=== PATIENT | male | born 1955 | race Caucasian/White ===

== ENCOUNTER 2017-09-18 15:18 | Inpatient (IN) ==
[2017-09-19] MEDS: Baclofen 10 MG TABLET PO SCH (21:59)
[2017-09-19] MEDS: Gabapentin 300 MG CAPSULE PO SCH (21:59)
[2017-09-19] MEDS: *HR* OxyCODONE/APAP 7.5/325 TABLET PO PRN (21:59)
[2017-09-20] MEDS: *HR* OxyCODONE/APAP 7.5/325 TABLET PO PRN ×3 (05:03→22:05)
[2017-09-20 05:47] LABS: Basophils # 0.2 K/mcL (0.0-0.2); Basophils % 1.8 %; Eosinophils # 0.3 K/mcL (0.0-0.6); Eosinophils % 3.4 %; Hematocrit 41.4 % (37.5-50.1); Hemoglobin 13.6 g/dL (12.9-16.9); Immature Granulocytes % 0.6 % (0-4); Lymphocytes # 3.2 K/mcL (0.6-4.6); Lymphocytes % 38.3 %; Mean Corpuscular HGB Conc 32.9 g/dL (31.6-35.5); Mean Corpuscular Hemoglobin 29.5 pg (28.0-33.3); Mean Corpuscular Volume 89.8 fL (83.0-100.0); Mean Platelet Volume 9.3 fL (9.4-12.4); Monocytes # 0.7 K/mcL (0.0-1.3); Monocytes % 8.4 %; Platelet Count 486 K/mcL (140-400); Red Blood Count 4.61 M/mcL (4.19-5.50); Red Cell Distribution Width 13.3 % (11.5-14.5); Segmented Neutrophils % 47.5 %
[2017-09-20 05:53] LABS: INR 1.1; Prothrombin Time 11.5 Seconds (9.4-12.1)
[2017-09-20 05:54] LABS: Activated Partial Thrombo Time 34.8 Seconds (26.0-36.0)
[2017-09-20 06:05] LABS: BUN/Creatinine Ratio 18 (6-26); Blood Urea Nitrogen 15 mg/dL (8-26); Carbon Dioxide 29 mEq/L (19-29); Chloride 108 mEq/L (98-109); Glucose 220 mg/dL (70-99); Osmolality,Calculated 300 (280-300); Sodium 141 mEq/L (136-145); eGFR For African Americans > 60 (> 60); eGFR For Non-African Americans > 60 (> 60)
[2017-09-20] MEDS: *HR* Metformin 500 MG TABLET PO SCH ×2 (08:30→16:40)
[2017-09-20] MEDS: Gabapentin 300 MG CAPSULE PO SCH ×3 (08:31→22:04)
[2017-09-20] MEDS: Baclofen 10 MG TABLET PO SCH ×3 (08:32→22:04)
[2017-09-20] MEDS: Insulin NPH/REG 70/30 100 UNIT/ML (x5UNIT) SQ SCH ×3 (09:17→17:28)
--- NOTE | 2017-09-20 13:57 | Internal Med History&Physical ---
Date of Encounter: 09/20/17 Time of Encounter: 13:55 Internal Medicine - H&P: HPI Chief complaint: H patient has severe lower extremity Admitted From: Hospital to Hospital Transfer Plans for Post Hospital Care: Home History of present illness: Mr. Colunga is a 62 year old male Stent here to rehabilitate increasing strength. He had fallen prior to this hospitalization. Initially went to the emergency room [facility] and was transferred to [facility]. Past Med Surg Social Fam HX - Past Medical History Medical history: arthritis, asthma, atrial fibrillation, cardiomyopathy, CHF, COPD, coronary artery disease, diabetes, GERD, hyperlipidemia, hypertension, myocardial infarction Psychiatric history: anxiety, depression - Past Surgical History Surgical History: angioplasty/stent, coronary bypass (CABG), orthopedic, other, pacemaker/AICD, other - Social History Smoking Status: Current every day smoker Packs per day: 1.5 packs a day Smokeless Tobacco Status: No Alcohol use: none Drug use: none - Family History Mother Living Status: Still Living Hx Family Cancer: Yes (kidney cancer) Father Living Status: Hx Family Cancer: Yes Internal Medicine - H&P: Meds Gabapentin [Neurontin] 300 mg PO TID 09/03/15 [History] OxyCODONE/APAP 7.5/325 [Percocet 7.5/325] 1 each PO Q6H PRN 09/03/15 [History] Clopidogrel Bisulfate [Plavix] 75 mg PO DAILY #30 tablet 08/31/17 [Rx] Insulin NPH Hum/Reg Insulin Hm [Novolin 70-30 100 Unit/ml Vial] 20 unit SQ QAM 08/31/17 [History] Lovastatin [Altoprev] 40 mg PO HS 08/31/17 [History] Baclofen [Lioresal] 10 mg PO TID 09/09/17 [History] Carvedilol 3.125 mg PO BIDWM 09/09/17 [History] Duloxetine HCl [Cymbalta] 60 mg PO BID 09/09/17 [History] Insulin NPH Hum/Reg Insulin Hm [Novolin 70-30 100 Unit/ml Vial] 30 unit SQ QPM 09/09/17 [History] Pantoprazole Sodium [Protonix] 40 mg PO DAILY 09/09/17 [History] Metformin HCl [Glucophage] 1,000 mg PO BID 09/10/17 [History] Amoxicillin/Clavulanate [Augmentin] 875 mg PO BIDWM tablet 09/19/17 [Rx] Ciprofloxacin [Cipro] 500 mg PO BID tablet 09/19/17 [Rx] 3 Allergy/AdvReac Type Severity Reaction Status Date / Time ticlopidine [From Ticlid] Allergy Hives Verified 09/10/17 08:37 All Systems PM: A 10-system review of systems was performed and is negative for pertinent findings except as documented above in the HPI. - Constitutional Constitutional: no anorexia, no chills, no excessive sweating, no fatigue, no fever(s), no falls, no lethargy, no malaise, no night sweats, no weakness, no weight gain, no weight loss - EENT Eyes: no blurry vision, no change in vision, no decreased night vision, no diplopia, no discharge, no dry eye, no floaters, no irritation, no itchy eyes, no loss of peripheral vision, no loss of vision, no pain, no photophobia, no seeing flashes, no spots in vision, no tunnel vision Ears: no decreased hearing, no ear discharge, no ear pain, no tinnitus Nose, mouth and throat: no bleeding gums, no change in voice, no dental pain, no dry mouth, no dysphagia, no epistaxis, no facial pain, no hoarseness, no lip swelling, no mouth lesions, no mouth pain, no nasal discharge, no nasal obstruction, no neck mass, no neck pain, no nose pain, no odynophagia, no post- nasal drip, no sinus pain, no sinus pressure, no sore throat, no throat swelling , no tongue swelling - Breasts Breasts: no as per HPI, no change in shape, no mass, no pain, no nipple discharge, no skin changes, no swelling - Cardiovascular Cardiovascular ROS IM: no chest pain, no claudication, no diaphoresis, no dyspnea, no dyspnea on exertion, no edema, no irregular heart rhythm, no lightheadedness, no orthopnea, no palpitations, no paroxysmal nocturnal dyspnea , no syncope - Respiratory Respiratory: no as per HPI, no cough, no dyspnea, no hemoptysis, no dyspnea on exertion, no wheezing, no snoring, no stridor, no pain on inspiration, no chest congestion, no excessive phlegm production, no change in phlegm color, no pain with cough - Gastrointestinal Gastrointestinal: no abdominal pain, no belching, no bloating, no change in bowel habits, no change in stool character, no coffee ground emesis, no constipation, no cramping, no dyspepsia, no dysphagia, no early satiety, no excessive flatus, no fecal incontinence, no heartburn, no hematemesis, no hematochezia, no loose stools, no melena, no nausea, no odynophagia, no tenesmus , no vomiting - Genitourinary Genitourinary ROS male: no as per HPI, no difficulty urinating, no dysuria, no flank pain, no hematuria, no nocturia, no penile discharge, no post void dribbling, no testicular pain, no urinary frequency, no urinary hesitancy, no urinary incontinence - Musculoskeletal Musculoskeletal ROS IM: deformity, joint swelling, muscle weakness, no arthralgias, no atrophy, no back pain, no limited range of motion, no muscle cramps, no myalgias, no neck pain, no numbness, no stiffness, no tingling - Integumentary Integumentary IM: no erythema, no new lesions, no non-healing lesions, no pruritus, no rash, no skin ulcer, no sores, no unusual bruising, no jaundice - Neurological Neurological ROS: abnormal gait, numbness, no abnormal hearing, no abnormal movements, no abnormal speech, no behavioral changes, no burning sensations, no confusion, no convulsions, no disequilibrium, no dizziness, no focal weakness, no frequent falls, no headache(s), no lack of coordination, no loss of vision, no memory loss, no paresthesias, no radicular pain, no restless legs, no tingling, no tremor(s), no vertigo, no weakness, no other visual disturbances - Psychiatric Psychiatric: no abnormal sleep pattern, no anhedonia, no anxiety, no auditory hallucinations, no confusion, no depression, no difficulty concentrating, no mood swings, no panic attacks, no paranoia, no suicidal ideation, no visual hallucinations - Hematologic/Lymphatic Hematologic/Lymphatic: easy bleeding, no easy bruising, no lymphadenopathy - Allergic/Immunologic Allergic/Immunologic: no tongue swelling, no throat swelling, no itchy eyes, no seasonal rhinorrhea, no uticaria, no wheezing, no GI upset with certain foods, no lip swelling - Constitutional Vitals: Temp Pulse Resp BP Pulse Ox 97.5 F L 72 16 162/86 98 09/20/17 07:45 09/20/17 07:48 09/20/17 07:48 09/20/17 07:48 09/20/17 07:48 General appearance: Present: A&O X 3, pleasant, answers questions appropriately - Head Head exam: Present: atraumatic, normal inspection, normocephalic - Neck Neck exam general surgery: Present: supple, trachea midline. Absent: lymphadenopathy - Respiratory Respiratory exam: Present: CTAB. Absent: accessory muscle use, rales, rhonchi, wheezes - Cardiovascular Cardiovascular exam: Present: RRR, +S1, +S2. Absent: diastolic murmur, gallop, rubs, systolic murmur - GI/Abdominal GI/Abdominal exam: Present: normal bowel sounds, soft, no peritoneal signs. Absent: distended, tenderness - Expanded Lower Extremities Exam Knee exam: Present: deformity, erythema Foot/Toe exam: Present: amputation, calcaneal tenderness, erythema, tenderness at base of 5th metatarsal Neuro vascular tendon exam: Present: pulse deficit, sensory deficit Gait: Present: antalgic - Neurological Exam Neurological exam: Present: abnormal gait, CN II-XII intact, motor sensory deficit, oriented X3, no focal deficits. Absent: pronater drift, facial droop, speech deficit Internal Med - H&P Results - Labs CBC & Chem 7: 09/20/17 05:10 09/20/17 05:10 Labs: Short CBC 09/20/17 Range/Units 05:10 WBC 8.3 (4.3-11.1) K/mcL Hgb 13.6 (12.9-16.9) g/dL Hct 41.4 (37.5-50.1) % Plt Count 486 H (140-400) K/mcL Neutrophils # 4.0 (1.6-8.9) K/mcL BMP 09/20/17 05:10 Sodium 141 Potassium 4.0 Chloride 108 Carbon Dioxide 29 BUN 15 Creatinine 0.82 Glucose 220 H Calcium 10.0
[2017-09-21] MEDS: *HR* OxyCODONE/APAP 7.5/325 TABLET PO PRN ×3 (04:25→21:34)
[2017-09-21] MEDS: Insulin NPH/REG 70/30 100 UNIT/ML (x5UNIT) SQ SCH ×2 (08:15→16:59)
[2017-09-21] MEDS: Baclofen 10 MG TABLET PO SCH ×3 (08:23→21:33)
[2017-09-21] MEDS: Gabapentin 300 MG CAPSULE PO SCH ×3 (08:24→21:33)
[2017-09-21] MEDS: *HR* Metformin 500 MG TABLET PO SCH ×2 (08:25→17:25)
--- NOTE | 2017-09-21 16:10 | Internal Med Progress Note ---
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 - Constitutional Vitals: Temp Pulse Resp BP Pulse Ox 98.2 F 76 16 133/82 96 09/21/17 10:00 09/21/17 14:08 09/21/17 14:08 09/21/17 14:08 09/21/17 14:08 General appearance: Present: A&O X 3, pleasant, answers questions appropriately - Head Head exam: Present: atraumatic, normal inspection, normocephalic - Neck Neck exam general surgery: Present: supple, trachea midline. Absent: lymphadenopathy - Respiratory Respiratory exam: Present: CTAB. Absent: accessory muscle use, rales, rhonchi, wheezes - Cardiovascular Cardiovascular exam: Present: RRR, +S1, +S2. Absent: diastolic murmur, gallop, rubs, systolic murmur - Expanded Lower Extremities Exam Foot/Toe exam: Present: amputation ( great toe amputation L lesion on lateral aspect of fifth metatarsal head. He does have a wound VAC and dressing. They have asked not to do any direct weightbearing) Internal Medicine: Result - Labs CBC & Chem 7: 09/20/17 05:10 09/20/17 05:10 Labs: Amazingly lab looks good - ABG Interpretation ABG results: PT/INR, D-dimer PT 11.5 Seconds (9.4-12.1) 09/20/17 05:10 Consult Discharge Plan - Plan Referrals: Steffi Gan, RECORDS MANAGEMENT MANAGER [Primary Care Provider] -
[2017-09-22] MEDS: Insulin NPH/REG 70/30 100 UNIT/ML (x5UNIT) SQ SCH ×2 (09:25→16:44)
[2017-09-22] MEDS: *HR* OxyCODONE/APAP 7.5/325 TABLET PO PRN ×2 (09:26→16:46)
[2017-09-22] MEDS: Baclofen 10 MG TABLET PO SCH ×3 (09:26→22:12)
[2017-09-22] MEDS: Gabapentin 300 MG CAPSULE PO SCH ×3 (09:26→22:12)
[2017-09-22] MEDS: *HR* Metformin 500 MG TABLET PO SCH ×2 (09:27→16:45)
--- NOTE | 2017-09-22 18:11 | Internal Med Progress Note ---
Date of Encounter: 09/22/17 Time of Encounter: 18:07 - Assessment and plan (1) Heel ulcer due to DM Current Visit: No Status: Acute Assessment and plan: Will follow his blood sugars but he does have significant peripheral vascular disease Qualifiers: Diabetes mellitus type: type 2 Laterality: left Non-pressure ulcer stage : unspecified non-pressure ulcer stage Qualified Code(s): E11.621 - Type 2 diabetes mellitus with foot ulcer; L97.429 - Non-pressure chronic ulcer of left heel and midfoot with unspecified severity; L97.429 - Non-pressure chronic ulcer of left heel and midfoot with unspecified severity; L97.429 - Non- pressure chronic ulcer of left heel and midfoot with unspecified severity; L97.429 - Non-pressure chronic ulcer of left heel and midfoot with unspecified severity (2) Ischemic ulcer of heel with fat layer exposed Current Visit: No Status: Acute Assessment and plan: Ischemic disease due to the fact that he has very severe PVD Qualifiers: Laterality: left Qualified Code(s): L97.422 - Non-pressure chronic ulcer of left heel and midfoot with fat layer exposed - Constitutional Vitals: Temp Pulse Resp BP Pulse Ox 98.2 F 82 18 110/71 97 09/22/17 08:01 09/22/17 08:01 09/22/17 08:01 09/22/17 08:01 09/22/17 08:01 General appearance: Present: A&O X 3, pleasant, answers questions appropriately - Head Head exam: Present: atraumatic, normal inspection, normocephalic - Respiratory Respiratory exam: Present: CTAB. Absent: accessory muscle use, respiratory distress, rhonchi, stridor, wheezes, tachypnea - Cardiovascular Cardiovascular exam: Present: RRR, +S1, +S2. Absent: bradycardia, rubs - Neurological Exam Neurological exam: Present: motor sensory deficit, oriented X3. Absent: strengths equal and symetr throughout Additional comments: myoclonus on the right upper and lower extremity - Psychiatric Psychiatric exam: Present: normal mood. Absent: agitated, anxious, depressed Internal Medicine: Result - Labs CBC & Chem 7: 09/20/17 05:10 09/20/17 05:10 - ABG Interpretation ABG results: PT/INR, D-dimer PT 11.5 Seconds (9.4-12.1) 09/20/17 05:10 Consult Discharge Plan - Plan Referrals: Steffi Gan CNP [Primary Care Provider] -
[2017-09-22] MEDS ORDERED: Ondansetron ODT 4 MG TAB.RAPDIS SL ONE (19:13)
[2017-09-22] MEDS ORDERED: *HR* Heparin 5,000 UNIT/ML VIAL SQ SCH (21:00)
[2017-09-22] MEDS: *HR* Heparin 5,000 UNIT/ML VIAL SQ SCH (22:12)
[2017-09-23] MEDS: *HR* Heparin 5,000 UNIT/ML VIAL SQ SCH ×2 (09:30→22:28)
[2017-09-23] MEDS: Insulin NPH/REG 70/30 100 UNIT/ML (x5UNIT) SQ SCH ×2 (09:31→16:54)
[2017-09-23] MEDS: *HR* Metformin 500 MG TABLET PO SCH ×2 (09:32→17:10)
[2017-09-23] MEDS: *HR* OxyCODONE/APAP 7.5/325 TABLET PO PRN ×2 (09:32→22:30)
[2017-09-23] MEDS: Gabapentin 300 MG CAPSULE PO SCH ×3 (09:33→22:29)
[2017-09-23] MEDS: Baclofen 10 MG TABLET PO SCH ×3 (09:33→22:29)
[2017-09-23] MEDS ORDERED: Ondansetron ODT 4 MG TAB.RAPDIS SL ONE (12:41)
--- NOTE | 2017-09-23 14:01 | Internal Med Progress Note ---
Date of Encounter: 09/23/17 Time of Encounter: 13:55 - Assessment and plan (1) Cellulitis of foot, left Current Visit: Yes Status: Acute Assessment and plan: - pt was discharged from [facility] after great toe amputation - currently on Aug/cipro for cellulitis - Total of 14 days post discharge - Antibiotics to stop Oct 01 (2) Heel ulcer due to DM Current Visit: No Status: Acute Assessment and plan: 2.5 by 2.5cm stage 4 - followed by wound, to be changed daily - done by nursing Qualifiers: Diabetes mellitus type: type 2 Laterality: left Non-pressure ulcer stage : unspecified non-pressure ulcer stage Qualified Code(s): E11.621 - Type 2 diabetes mellitus with foot ulcer; L97.429 - Non-pressure chronic ulcer of left heel and midfoot with unspecified severity; L97.429 - Non-pressure chronic ulcer of left heel and midfoot with unspecified severity; L97.429 - Non- pressure chronic ulcer of left heel and midfoot with unspecified severity; L97.429 - Non-pressure chronic ulcer of left heel and midfoot with unspecified severity (3) Ischemic ulcer of heel with fat layer exposed Current Visit: No Status: Acute Assessment and plan: Ischemic disease due to the fact that he has very severe PVD - wound vac, followed by wound care - stable without any signs of cellulitis - on antibiotics to be d/c by Oct 01 Qualifiers: Laterality: left Qualified Code(s): L97.422 - Non-pressure chronic ulcer of left heel and midfoot with fat layer exposed (4) Nausea & vomiting Current Visit: Yes Status: Acute Assessment and plan: - one episode yesterday - resolved by zofran - unknown etiology at this time, without any abdominal pain nor diarrhea - no abd tenderness - suspect acute food intolerance as he ate food brought by his - no vomting today, and appear to be better Qualifiers: Vomiting type: unspecified Vomiting Intractability: non-intractable Qualified Code(s): R11.2 - Nausea with vomiting, unspecified (5) Myoclonic jerking Current Visit: Yes Status: Acute Assessment and plan: extrapyrimidal and possibly related to a stroke given the asymmetry - discussed that she is having him see movement disorder clinic at - I have also discussed trying [facility] movement disorder clinic as well - would avoid dopamine antagonists at this time - Time Spent With Patient less than 15 minutes - Constitutional Vitals: Temp Pulse Resp BP Pulse Ox 98.0 F 68 16 127/74 96 09/23/17 07:08 09/23/17 07:08 09/23/17 07:08 09/23/17 07:08 09/23/17 07:08 General appearance: Present: A&O X 3, pleasant, answers questions appropriately Internal Medicine: Result - Labs CBC & Chem 7: 09/20/17 05:10 09/20/17 05:10 - ABG Interpretation ABG results: PT/INR, D-dimer PT 11.5 Seconds (9.4-12.1) 09/20/17 05:10 Consult Discharge Plan - Plan Referrals: Steffi Gan, GONZALO [Primary Care Provider] -
[2017-09-23] MEDS ORDERED: Ondansetron ODT 4 MG TAB.RAPDIS SL PRN (16:46)
[2017-09-24 05:36] LABS: Basophils # 0.2 K/mcL (0.0-0.2); Basophils % 1.9 %; Eosinophils # 0.3 K/mcL (0.0-0.6); Eosinophils % 3.6 %; Hematocrit 40.3 % (37.5-50.1); Hemoglobin 13.5 g/dL (12.9-16.9); Immature Granulocytes % 0.3 % (0-4); Lymphocytes # 3.4 K/mcL (0.6-4.6); Lymphocytes % 36.9 %; Mean Corpuscular HGB Conc 33.5 g/dL (31.6-35.5); Mean Corpuscular Volume 89.6 fL (83.0-100.0); Mean Platelet Volume 9.6 fL (9.4-12.4); Monocytes # 0.7 K/mcL (0.0-1.3); Monocytes % 7.3 %; Neutrophils # 4.6 K/mcL (1.6-8.9); Platelet Count 415 K/mcL (140-400); Red Cell Distribution Width 13.3 % (11.5-14.5)
[2017-09-24 05:52] LABS: BUN/Creatinine Ratio 20 (6-26); Blood Urea Nitrogen 15 mg/dL (8-26); Carbon Dioxide 28 mEq/L (19-29); Chloride 108 mEq/L (98-109); Glucose 106 mg/dL (70-99); Osmolality,Calculated 291 (280-300); Potassium 3.8 mEq/L (3.5-4.5); Sodium 140 mEq/L (136-145); eGFR For African Americans > 60 (> 60); eGFR For Non-African Americans > 60 (> 60)
[2017-09-24] MEDS: Gabapentin 300 MG CAPSULE PO SCH ×3 (09:33→20:03)
[2017-09-24] MEDS: Baclofen 10 MG TABLET PO SCH ×3 (09:33→20:04)
[2017-09-24] MEDS: *HR* Metformin 500 MG TABLET PO SCH ×2 (09:34→17:30)
[2017-09-24] MEDS: *HR* Heparin 5,000 UNIT/ML VIAL SQ SCH ×2 (09:34→20:04)
[2017-09-24] MEDS: Insulin NPH/REG 70/30 100 UNIT/ML (x5UNIT) SQ SCH ×2 (09:35→17:31)
--- NOTE | 2017-09-24 14:40 | Internal Med Progress Note ---
Date of Encounter: 09/24/17 Time of Encounter: 14:29 - Assessment and plan (1) Heel ulcer due to DM Current Visit: No Status: Acute Assessment and plan: Currently being seen by wound care. Has a vacuum pump Qualifiers: Diabetes mellitus type: type 2 Laterality: left Non-pressure ulcer stage : unspecified non-pressure ulcer stage Qualified Code(s): E11.621 - Type 2 diabetes mellitus with foot ulcer; L97.429 - Non-pressure chronic ulcer of left heel and midfoot with unspecified severity; L97.429 - Non-pressure chronic ulcer of left heel and midfoot with unspecified severity; L97.429 - Non- pressure chronic ulcer of left heel and midfoot with unspecified severity; L97.429 - Non-pressure chronic ulcer of left heel and midfoot with unspecified severity (2) Ischemic ulcer of heel with fat layer exposed Current Visit: No Status: Acute Assessment and plan: Being treated by wound care Qualifiers: Laterality: left Qualified Code(s): L97.422 - Non-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 He has a great deal of spastic type of movemennt that he type that severely limits his rehabilitation. Patient states that he saw a neurologist at [place], but I cannot find any visit like that. - Constitutional Vitals: Temp Pulse Resp BP Pulse Ox 98.1 F 70 16 117/70 97 09/24/17 07:34 09/24/17 07:34 09/24/17 07:34 09/24/17 07:34 09/24/17 07:34 General appearance: Present: A&O X 3, pleasant, answers questions appropriately - Head Head exam: Present: atraumatic, normal inspection, normocephalic - Neck Neck exam general surgery: Present: supple, trachea midline. Absent: lymphadenopathy - Respiratory Respiratory exam: Present: CTAB. Absent: accessory muscle use, rales, rhonchi, wheezes - Cardiovascular Cardiovascular exam: Present: RRR, +S1, +S2. Absent: diastolic murmur, gallop, rubs, systolic murmur Internal Medicine: Result - Labs CBC & Chem 7: 09/24/17 05:00 09/24/17 05:00 Labs: Short CBC 09/24/17 Range/Units 05:00 WBC 9.2 (4.3-11.1) K/mcL Hgb 13.5 (12.9-16.9) g/dL Hct 40.3 (37.5-50.1) % Plt Count 415 H (140-400) K/mcL Neutrophils # 4.6 (1.6-8.9) K/mcL BMP 09/24/17 05:00 Sodium 140 Potassium 3.8 Chloride 108 Carbon Dioxide 28 BUN 15 Creatinine 0.76 Glucose 106 H Calcium 10.0 - ABG Interpretation ABG results: PT/INR, D-dimer PT 11.5 Seconds (9.4-12.1) 09/20/17 05:10 Consult Discharge Plan - Plan Referrals: Steffi Gan CNP [Primary Care Provider] -
[2017-09-24] MEDS: *HR* OxyCODONE/APAP 7.5/325 TABLET PO PRN ×2 (15:22→21:54)
[2017-09-25] MEDS: *HR* OxyCODONE/APAP 7.5/325 TABLET PO PRN ×3 (06:14→18:48)
[2017-09-25] MEDS: *HR* Metformin 500 MG TABLET PO SCH ×2 (08:33→17:21)
[2017-09-25] MEDS: *HR* Heparin 5,000 UNIT/ML VIAL SQ SCH ×2 (08:34→21:37)
[2017-09-25] MEDS: Gabapentin 300 MG CAPSULE PO SCH ×3 (08:34→21:38)
[2017-09-25] MEDS: Baclofen 10 MG TABLET PO SCH ×3 (08:35→21:37)
[2017-09-25] MEDS: Insulin NPH/REG 70/30 100 UNIT/ML (x5UNIT) SQ SCH ×2 (08:40→17:22)
--- NOTE | 2017-09-25 13:37 | Internal Med Progress Note ---
Date of Encounter: 09/26/17 Time of Encounter: 16:07 - Assessment and plan (1) Status post amputation of toe of left foot Current Visit: No Status: Acute Assessment and plan: Patient has scant amount of drainage received per wound VAC. We will continue with continuous wound VAC. Maintain leg elevated. Currently afebrile and denies any pain to his left foot. We will continue with current ATB. No signs of acute infection (2) Heel ulcer due to DM Current Visit: No Status: Acute Assessment and plan: No acute issues, repairs particularly well with no acute signs of infection noted. We will continue with daily dressing changes. Patient remains afebrile. Continues on current oral antibiotics Qualifiers: Diabetes mellitus type: type 2 Laterality: left Non-pressure ulcer stage : unspecified non-pressure ulcer stage Qualified Code(s): E11.621 - Type 2 diabetes mellitus with foot ulcer; L97.429 - Non-pressure chronic ulcer of left heel and midfoot with unspecified severity; L97.429 - Non-pressure chronic ulcer of left heel and midfoot with unspecified severity; L97.429 - Non- pressure chronic ulcer of left heel and midfoot with unspecified severity; L97.429 - Non-pressure chronic ulcer of left heel and midfoot with unspecified severity (3) Ischemic ulcer of heel with fat layer exposed Current Visit: No Status: Acute Qualifiers: Laterality: left Qualified Code(s): L97.422 - Non-pressure chronic ulcer of left heel and midfoot with fat layer exposed (4) CHF (congestive heart failure) Current Visit: No Status: Chronic Assessment and plan: No acute issues. Lungs remain diminished throughout lower saha, but patient currently denies any dyspnea. History of cardiomyopathy. We will continue with current medications and continue to monitor closely Qualifiers: Congestive heart failure type: unspecified congestive heart failure type Congestive heart failure chronicity: chronic Qualified Code(s): I50.9 - Heart failure, unspecified (5) Hypertension Current Visit: No Status: Chronic Assessment and plan: Vital signs remained within normal limits with systolic blood pressure less than 150. We will continue with current medications. Qualifiers: Hypertension type: essential hypertension Qualified Code(s): I10 - Essential (primary) hypertension (6) Diabetes mellitus Current Visit: No Status: Chronic Assessment and plan: Patient's glucose on fingersticks remain 150-200. Patient currently being covered with 70/30 insulin twice a day. Will continue to monitor AC and HS fingersticks to evaluate for needs in adjustment in long acting coverage. Goal of <150 glucose to promote wound healing. Qualifiers: Diabetes mellitus type: type 2 Diabetes mellitus complication status: with circulatory complication Diabetes mellitus complication detail: with peripheral angiopathy with gangrene Diabetes mellitus intermediate insulin use: with joint terminal attack controller use Qualified Code(s): E11.52 - Type 2 diabetes mellitus with diabetic peripheral angiopathy with gangrene; Z79.4 - [facility] (current) use of insulin; Z79.4 - [employer] (current) use of insulin; Z79.4 - [facility] ( current) use of insulin; Z79.4 - [employer] (current) use of insulin (7) Unsteady gait Current Visit: Yes Status: Acute Assessment and plan: Patient continues with unsteady gait and is a fall risk due to nonweightbearing of left foot. The foot continues with wound VAC in place to an infected surgical wound. His left great toe and dictated. Patient also continues with daily dressing changes to his left heel. Patient also has continued spastic movement of his right arm and leg which further increases his risk for fall and poor gait balance. Would recommend patient to have a wheelchair after discharge to be able to perform his daily ADLs at home and to reduce the risk of possible falls and injury. Patient continues to be a risk for fall during transferring and and has poor endurance when attempting to stand for long periods of time.. Use of the wheelchair which greatly reduce this risk of injury. Patient states that he is willing and able to be able to use a wheelchair at home. States that his home is able to accommodate a wheelchair. - Constitutional Vitals: Temp Pulse Resp BP Pulse Ox 97.5 F L 69 16 123/74 97 09/25/17 07:20 09/25/17 07:20 09/25/17 07:20 09/25/17 07:20 09/25/17 07:20 General appearance: Present: A&O X 3, pleasant, answers questions appropriately - Head Head exam: Present: atraumatic, normocephalic - Neck Neck exam general surgery: Present: supple, trachea midline. Absent: lymphadenopathy - Respiratory Additional comments: Lungs clear to auscultation, but noted diminished breath sounds to posterior lower field - Cardiovascular Cardiovascular exam: Present: +S1, +S2, systolic murmur - GI/Abdominal GI/Abdominal exam: Present: normal bowel sounds, soft, no peritoneal signs. Absent: distended, tenderness - Extremities Exam Extremities exam: Present: full ROM Additional comments: Patient continues to have wound VAC to left great toe amputation wound. Scant serous type drainage received. Noted left foot with slight swelling. - Neurological Exam Neurological exam: Present: CN II-XII intact, oriented X3, strengths equal and symetr throughout Additional comments: Patient continues with spastic movement to right extremities. Patient noted to have equal strains on muscle strength bilaterally. Patient noted to have difficulty with fine motor movement with right hand. States that he he is left- handed. - Skin Skin exam: Present: dry, intact Internal Medicine: Result - Labs CBC & Chem 7: 09/24/17 05:00 09/24/17 05:00 - ABG Interpretation ABG results: PT/INR, D-dimer PT 11.5 Seconds (9.4-12.1) 09/20/17 05:10 Consult Discharge Plan - Plan Referrals: Steffi Gan VETERINARY ATTENDANT [Primary Care Provider] -
[2017-09-26] MEDS: *HR* OxyCODONE/APAP 7.5/325 TABLET PO PRN ×3 (06:25→18:48)
[2017-09-26] MEDS: *HR* Heparin 5,000 UNIT/ML VIAL SQ SCH ×2 (07:58→22:42)
[2017-09-26] MEDS: *HR* Metformin 500 MG TABLET PO SCH ×2 (07:59→16:23)
[2017-09-26] MEDS: Gabapentin 300 MG CAPSULE PO SCH ×3 (08:00→22:42)
[2017-09-26] MEDS: Baclofen 10 MG TABLET PO SCH ×3 (08:00→22:45)
[2017-09-26] MEDS: Insulin NPH/REG 70/30 100 UNIT/ML (x5UNIT) SQ SCH ×2 (08:00→16:24)
--- NOTE | 2017-09-26 11:37 | Internal Med Progress Note ---
Date of Encounter: 09/26/17 Time of Encounter: 16:07 - Assessment and plan (1) Status post amputation of toe of left foot Current Visit: No Status: Acute Assessment and plan: No acute issues. We will continue with wound VAC to the left great toe amputation site per wound clinic, which has very scant amount of drainage. Left heel continues with daily dressing changes. Patient being prepared for discharge to home with wound VAC and will continue to follow up with wound clinic as an outpatient. Remains afebrile. Denies any discomforts to wound. We will continue with current plan of care (2) Heel ulcer due to DM Current Visit: No Status: Acute Assessment and plan: No acute issues, repairs particularly well with no acute signs of infection noted. We will continue with daily dressing changes. Patient remains afebrile. Continues on current oral antibiotics patient to continue with current plan of care and being prepared for discharge. Patient will continue to follow-up with wound care clinic as outpatient. Qualifiers: Diabetes mellitus type: type 2 Laterality: left Non-pressure ulcer stage : unspecified non-pressure ulcer stage Qualified Code(s): E11.621 - Type 2 diabetes mellitus with foot ulcer; L97.429 - Non-pressure chronic ulcer of left heel and midfoot with unspecified severity; L97.429 - Non-pressure chronic ulcer of left heel and midfoot with unspecified severity; L97.429 - Non- pressure chronic ulcer of left heel and midfoot with unspecified severity; L97.429 - Non-pressure chronic ulcer of left heel and midfoot with unspecified severity (3) Ischemic ulcer of heel with fat layer exposed Current Visit: No Status: Acute Qualifiers: Laterality: left Qualified Code(s): L97.422 - Non-pressure chronic ulcer of left heel and midfoot with fat layer exposed (4) CHF (congestive heart failure) Current Visit: No Status: Chronic Assessment and plan: No acute issues. Lungs remain diminished throughout lower saha, but patient currently denies any dyspnea. History of cardiomyopathy. We will continue with current medications and continue to monitor closely Qualifiers: Congestive heart failure type: unspecified congestive heart failure type Congestive heart failure chronicity: chronic Qualified Code(s): I50.9 - Heart failure, unspecified (5) Hypertension Current Visit: No Status: Chronic Assessment and plan: Vital signs remained within normal limits with systolic blood pressure less than 150. We will continue with current medications. Qualifiers: Hypertension type: essential hypertension Qualified Code(s): I10 - Essential (primary) hypertension (6) Diabetes mellitus Current Visit: No Status: Chronic Assessment and plan: Patient's glucose on fingersticks remain 120-175 range. Patient currently being covered with 70/30 insulin twice a day. Will continue to monitor AC and HS fingersticks to evaluate for needs in adjustment in long acting coverage. Goal of <150 glucose to promote wound healing.- Qualifiers: Diabetes mellitus type: type 2 Diabetes mellitus complication status: with circulatory complication Diabetes mellitus complication detail: with peripheral angiopathy with gangrene Diabetes mellitus terminal gauger supervisor insulin use: with assisted use Qualified Code(s): E11.52 - Type 2 diabetes mellitus with diabetic peripheral angiopathy with gangrene; Z79.4 - shelter (current) use of insulin; Z79.4 - termite control service representative (current) use of insulin; Z79.4 - termite control service representative ( current) use of insulin; Z79.4 - shelter (current) use of insulin (7) Unsteady gait Current Visit: Yes Status: Acute Assessment and plan: The patient continues to have unsteady gait due to nonweightbearing to left foot. Patient continues to be a risk for fall. We will continue with recommendations a wheelchair at time of discharge - Subjective Interval history: Patient states that he has no acute issues. Denies any current discomforts for growth. Patient states that he has concerns about being prepared for discharge later in this week. - Constitutional Vitals: Temp Pulse Resp BP Pulse Ox 97.5 F L 72 16 140/78 98 09/26/17 07:00 09/26/17 07:00 09/26/17 07:00 09/26/17 07:00 09/26/17 07:00 General appearance: Present: A&O X 3, pleasant, answers questions appropriately - Head Head exam: Present: atraumatic, normocephalic - Respiratory Respiratory exam: Present: CTAB. Absent: accessory muscle use, rales, rhonchi, wheezes - Cardiovascular Cardiovascular exam: Present: RRR, +S1, +S2. Absent: diastolic murmur, gallop, rubs, systolic murmur - GI/Abdominal GI/Abdominal exam: Present: normal bowel sounds, soft, no peritoneal signs. Absent: distended, tenderness - Neurological Exam Neurological exam: Present: CN II-XII intact, oriented X3, no focal deficits. Absent: pronater drift, facial droop, speech deficit Additional comments: Patient continues to have spastic type movement to his right extremity. No difficulty with any fine motor movement. Patient states this is chronic issue that has been present for the past several months. Muscle strength has remained equal to lower extremities - Skin Skin exam: Present: dry, intact Additional comments: Patient continues with wound VAC to left foot was continues to have very scant amount of serous type drainage. Patient also has dressing to left heel which remains dry and intact. Internal Medicine: Result - Labs CBC & Chem 7: 09/24/17 05:00 09/24/17 05:00 - ABG Interpretation ABG results: PT/INR, D-dimer PT 11.5 Seconds (9.4-12.1) 09/20/17 05:10 Consult Discharge Plan - Plan Referrals: Steffi Gan, DOCKING SAW OPERATOR [Primary Care Provider] -
--- NOTE | 2017-09-26 13:45 | Psychological Evaluation ---
Date of Encounter: 09/26/17 Time of Encounter: 11:15 History of Present Illness History of present illness: Mr. Colunga is a 62 year old male who was admitted after amputation of his great toe. Past Medical History Medical history: PMH includes arthritis, asthma, atrial fibrillation, cardiomyopathy, CHF, COPD, CAD, diaetes, GERD, HCL, HTN and myocardial infarction. Psychiatric history includes depression and anxiety. Mr. Colunga reports that mood disorders commended in September,. However, he was reluctant to discuss further. The patient reported that there was a suicide attempt approximately 2 to 3 months ago and that he was placed in inpatient psychiatric hospitalization. He reported that his medications were reviewed (he found that helpful); however he is not receiving therapy. The patient has been prescribed Cymbalta and found that helpful. However, he feels that the medication is no longer working and that depression is getting worse. Increase in dosage was discussed at the team meeting. The patient appeared open to therapy. Therapy referral was also discussed at the team meeting. Other issues that contribute to mood disorder include family and marital issues. Home Medications and Allergies Gabapentin [Neurontin] 300 mg PO TID 09/03/15 [History] OxyCODONE/APAP 7.5/325 [Percocet 7.5/325] 1 each PO Q6H PRN 09/03/15 [History] Clopidogrel Bisulfate [Plavix] 75 mg PO DAILY #30 tablet 08/31/17 [Rx] Insulin NPH Hum/Reg Insulin Hm [Novolin 70-30 100 Unit/ml Vial] 20 unit SQ QAM 08/31/17 [History] Lovastatin [Altoprev] 40 mg PO HS 08/31/17 [History] Baclofen [Lioresal] 10 mg PO TID 09/09/17 [History] Carvedilol 3.125 mg PO BIDWM 09/09/17 [History] Duloxetine HCl [Cymbalta] 60 mg PO BID 09/09/17 [History] Insulin NPH Hum/Reg Insulin Hm [Novolin 70-30 100 Unit/ml Vial] 30 unit SQ QPM 09/09/17 [History] Pantoprazole Sodium [Protonix] 40 mg PO DAILY 09/09/17 [History] Metformin HCl [Glucophage] 1,000 mg PO BID 09/10/17 [History] Amoxicillin/Clavulanate [Augmentin] 875 mg PO BIDWM tablet 09/19/17 [Rx] Ciprofloxacin [Cipro] 500 mg PO BID tablet 09/19/17 [Rx] 3 Allergy/AdvReac Type Severity Reaction Status Date / Time ticlopidine [From Ticlid] Allergy Hives Verified 09/10/17 08:37 carbidopa [From Sinemet] AdvReac Confusion Verified 09/24/17 15:42 levodopa [From Sinemet] AdvReac Confusion Verified 09/24/17 15:42 Social History - Social History Social History: The patient retired 4 to 5 years ago as a [employer]. He is and has 3 young children in the home (6,8,14). The patient's spouse works and transportation for the patient is problematic. Cognitive/Emotional Assessment - Cognitive Ability Abstract Thinking Ability: No Deficits Noted (The patient was alert and oriented. He was able to provide recent and remote information. Memory appeared to be within functional limits. Affective issues interferred.) Assessment & Plan - Prognosis Prognosis: Poor (The patient will be discharged on Sunday. Increase in Cymbalta was recommended in the team meeting. Provision of therapy sources was also suggested.)
[2017-09-27] MEDS: *HR* OxyCODONE/APAP 7.5/325 TABLET PO PRN ×2 (09:21→16:51)
[2017-09-27] MEDS: Baclofen 10 MG TABLET PO SCH ×3 (09:21→21:56)
[2017-09-27] MEDS: Gabapentin 300 MG CAPSULE PO SCH ×3 (09:22→21:56)
[2017-09-27] MEDS: *HR* Heparin 5,000 UNIT/ML VIAL SQ SCH ×2 (09:23→21:56)
[2017-09-27] MEDS: *HR* Metformin 500 MG TABLET PO SCH ×2 (09:23→16:37)
[2017-09-27] MEDS: Insulin NPH/REG 70/30 100 UNIT/ML (x5UNIT) SQ SCH (09:29)
--- NOTE | 2017-09-27 11:23 | Internal Med Progress Note ---
Date of Encounter: 09/27/17 Time of Encounter: 11:21 - Assessment and plan (1) Status post amputation of toe of left foot Current Visit: Yes Status: Acute Assessment and plan: No acute issues. We will continue with wound VAC to the left great toe amputation site per wound clinic, which has very scant amount of drainage. Left heel continues with daily dressing changes. Patient being prepared for discharge to home tomorrow with wound VAC and will continue to follow up with wound clinic as an outpatient. Remains afebrile. Denies any discomforts to wound. We will continue with current plan of care (2) Heel ulcer due to DM Current Visit: Yes Status: Acute Assessment and plan: No acute issues, repairs particularly well with no acute signs of infection noted. We will continue with daily dressing changes. Patient remains afebrile. Continues on current oral antibiotics patient to continue with current plan of care and being prepared for discharge tomorrow. Patient will continue to follow-up with wound care clinic as outpatient. Qualifiers: Diabetes mellitus type: type 2 Laterality: left Non-pressure ulcer stage : unspecified non-pressure ulcer stage Qualified Code(s): E11.621 - Type 2 diabetes mellitus with foot ulcer; L97.429 - Non-pressure chronic ulcer of left heel and midfoot with unspecified severity; L97.429 - Non-pressure chronic ulcer of left heel and midfoot with unspecified severity; L97.429 - Non- pressure chronic ulcer of left heel and midfoot with unspecified severity; L97.429 - Non-pressure chronic ulcer of left heel and midfoot with unspecified severity (3) Ischemic ulcer of heel with fat layer exposed Current Visit: No Status: Acute Assessment and plan: Being treated by wound care Qualifiers: Laterality: left Qualified Code(s): L97.422 - Non-pressure chronic ulcer of left heel and midfoot with fat layer exposed (4) CHF (congestive heart failure) Current Visit: Yes Status: Chronic Assessment and plan: No acute issues. Lungs remain diminished throughout lower saha, but patient currently denies any dyspnea. History of cardiomyopathy. We will continue with current medications and continue to monitor closely Qualifiers: Congestive heart failure type: unspecified congestive heart failure type Congestive heart failure chronicity: chronic Qualified Code(s): I50.9 - Heart failure, unspecified (5) Hypertension Current Visit: Yes Status: Chronic Assessment and plan: Vital signs remained within normal limits with systolic blood pressure less than 150. We will continue with current medications. Qualifiers: Hypertension type: essential hypertension Qualified Code(s): I10 - Essential (primary) hypertension (6) Diabetes mellitus Current Visit: Yes Status: Chronic Assessment and plan: Patient's glucose has been low during the evening. Patient's glucose last night was 58, requiring supplements given. Patient currently being covered with 70/30 insulin twice a day and will decrease evening dosing to 25 units. We will continue with 20 units in the morning. Will continue to monitor AC and HS fingersticks to evaluate for needs in adjustment in long acting coverage. Goal of <150 glucose to promote wound healing.- Qualifiers: Diabetes mellitus type: type 2 Diabetes mellitus complication status: with circulatory complication Diabetes mellitus complication detail: with peripheral angiopathy with gangrene Diabetes mellitus longterm insulin use: with director of federal sales use Qualified Code(s): E11.52 - Type 2 diabetes mellitus with diabetic peripheral angiopathy with gangrene; Z79.4 - administrative medical director (current) use of insulin; Z79.4 - administrative medical director (current) use of insulin; Z79.4 - [employer] ( current) use of insulin; Z79.4 - administrative medical director (current) use of insulin (7) Unsteady gait Current Visit: No Status: Acute - Subjective Interval history: Patient states concerns about his glucose. Patient states that last evening his glucose dropped into the 50s and he had to take supplements to be able to bring it back up. Patient states that he felt weak at that time but denies any current issues. Denies any current discomforts for growth. Patient continues with concerns about being prepared for discharge tomorrow. - Constitutional Vitals: Temp Pulse Resp BP Pulse Ox 97.5 F L 68 16 118/72 95 09/27/17 07:16 09/27/17 07:16 09/27/17 07:16 09/27/17 07:16 09/27/17 07:16 General appearance: Present: A&O X 3, pleasant, answers questions appropriately - Neck Neck exam general surgery: Present: supple, trachea midline. Absent: lymphadenopathy - Respiratory Respiratory exam: Present: CTAB. Absent: accessory muscle use, rales, rhonchi, wheezes - Cardiovascular Cardiovascular exam: Present: RRR, +S1, +S2. Absent: diastolic murmur, gallop, rubs, systolic murmur - GI/Abdominal GI/Abdominal exam: Present: normal bowel sounds, soft, no peritoneal signs. Absent: distended, tenderness - Extremities Exam Extremities exam: Present: warm, radial pulses palpable and symmetrical. Absent : calf tenderness, cyanotic, pedal edema Additional comments: Patient continues with dressing to left foot with wound VAC in place. Continued with scant serous drainage received. - Neurological Exam Neurological exam: Present: CN II-XII intact, oriented X3, no focal deficits. Absent: pronater drift, facial droop, speech deficit Additional comments: Patient continues with spastic type movement to his right extremities only. Patient continues with equal motor strength during exam. Patient with difficulty on fine motor movement on the right extremities. Noted hyperreflexia to right arm and leg. - Skin Skin exam: Present: dry, intact Internal Medicine: Result - Labs CBC & Chem 7: 09/24/17 05:00 09/24/17 05:00 - ABG Interpretation ABG results: PT/INR, D-dimer PT 11.5 Seconds (9.4-12.1) 09/20/17 05:10 Consult Discharge Plan - Plan Referrals: Steffi Gan, SANDER PORTABLE MACHINE [Primary Care Provider] -
--- NOTE | 2017-09-27 14:24 | Discharge Summary ---
Date of Encounter: 09/27/17 Time of Encounter: 14:22 - Discharge Diagnosis (1) Heel ulcer due to DM Priority: Primary Status: Acute Qualifiers: Diabetes mellitus type: type 2 Laterality: left Non-pressure ulcer stage : unspecified non-pressure ulcer stage Qualified Code(s): E11.621 - Type 2 diabetes mellitus with foot ulcer; L97.429 - Non-pressure chronic ulcer of left heel and midfoot with unspecified severity; L97.429 - Non-pressure chronic ulcer of left heel and midfoot with unspecified severity; L97.429 - Non- pressure chronic ulcer of left heel and midfoot with unspecified severity; L97.429 - Non-pressure chronic ulcer of left heel and midfoot with unspecified severity (2) Ischemic ulcer of heel with fat layer exposed Priority: Primary Status: Acute Qualifiers: Laterality: left Qualified Code(s): L97.422 - Non-pressure chronic ulcer of left heel and midfoot with fat layer exposed - Discharge Medications Home Medications: Gabapentin [Neurontin] 300 mg PO TID 09/03/15 [History] OxyCODONE/APAP 7.5/325 [Percocet 7.5/325] 1 each PO Q6H PRN 09/03/15 [History] Clopidogrel Bisulfate [Plavix] 75 mg PO DAILY #30 tablet 08/31/17 [Rx] Insulin NPH Hum/Reg Insulin Hm [Novolin 70-30 100 Unit/ml Vial] 20 unit SQ QAM 08/31/17 [History] Lovastatin [Altoprev] 40 mg PO HS 08/31/17 [History] Baclofen [Lioresal] 10 mg PO TID 09/09/17 [History] Carvedilol 3.125 mg PO BIDWM 09/09/17 [History] Duloxetine HCl [Cymbalta] 60 mg PO BID 09/09/17 [History] Insulin NPH Hum/Reg Insulin Hm [Novolin 70-30 100 Unit/ml Vial] 30 unit SQ QPM 09/09/17 [History] Pantoprazole Sodium [Protonix] 40 mg PO DAILY 09/09/17 [History] Metformin HCl [Glucophage] 1,000 mg PO BID 09/10/17 [History] Amoxicillin/Clavulanate [Augmentin] 875 mg PO BIDWM tablet 09/19/17 [Rx] Ciprofloxacin [Cipro] 500 mg PO BID tablet 09/19/17 [Rx] Allergies/Adverse Reactions: 3 Allergy/AdvReac Type Severity Reaction Status Date / Time ticlopidine [From Ticlid] Allergy Hives Verified 09/10/17 08:37 carbidopa [From Sinemet] AdvReac Confusion Verified 09/24/17 15:42 levodopa [From Sinemet] AdvReac Confusion Verified 09/24/17 15:42 Date of admission: 09/19/17 19:31 Primary care physician: Steffi Gan CNP Consults: 09/19/17 20:18 Consult to Occupational Therapy [CONS] Routine Comment: Evaluate, develop and implement POC Reason for Consult: Eval and Treat Consult to Physical Therapy [CONS] Routine Comment: Evaluate, develop and implement POC Reason for Consult: Eval and Treat Consult to Recreational Therapy [CONS] Routine Comment: Evaluate, develop and implement POC Consult to Licensed Life And Health Agent [CONS] Routine Reason for SW Consult: Eval and Treat 09/19/17 23:13 Consult to Wound Care [CONS] Routine Reason for Consult: Left great toe amputated, wound vac in place. Area noted to left heel. Call Completed: No 09/25/17 12:40 Consult to Psychology [CONS] Routine Consulting Provider: Zena Gupta Reason for Consult: depression Time Notified: 13:00 Call Completed: No Discharging clinician: Chris Henao Anticipated date of discharge: 09/28/17 - Patient Status Disposition: Home Health Service Condition: Fair Functional capacity at discharge: wheelchair bound Overall status at discharge: patient is not back to baseline - Discharge Instructions Follow Up With: Steffi Gan CNP [Primary Care Provider] - - Diet and Activity Activity: as per physical therapy Diet: diabetic diet Interval History: Herminio Colunga was brought here for deconditioning due to recent amputation of his toe had severe vascular disease with exposed bone fat lateral aspect of his foot. He also had a wound VAC applied. Hospital course: Mr. 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 Less than 30 minutes - Constitutional Vitals: Temp Pulse Resp BP Pulse Ox 97.5 F L 68 16 118/72 95 09/27/17 07:16 09/27/17 07:16 09/27/17 07:16 09/27/17 07:16 09/27/17 07:16 General appearance: Present: A&O X 3, pleasant, answers questions appropriately - Head Head exam: Present: atraumatic, normal inspection, normocephalic - Neck Neck exam general surgery: Present: supple, trachea midline. Absent: lymphadenopathy - Respiratory Respiratory exam: Present: CTAB. Absent: accessory muscle use, rales, rhonchi, wheezes - Cardiovascular Cardiovascular exam: Present: RRR, +S1, +S2. Absent: diastolic murmur, gallop, rubs, systolic murmur
[2017-09-27] MEDS ORDERED: Insulin NPH/REG 70/30 100 UNIT/ML (x5UNIT) SQ SCH (18:00)
[2017-09-28 07:29] VITALS: BP 150/65
[2017-09-28] MEDS: *HR* OxyCODONE/APAP 7.5/325 TABLET PO PRN (08:20)
[2017-09-28] MEDS: Baclofen 10 MG TABLET PO SCH (08:36)
[2017-09-28] MEDS: *HR* Heparin 5,000 UNIT/ML VIAL SQ SCH (08:36)
[2017-09-28] MEDS: *HR* Metformin 500 MG TABLET PO SCH (08:36)
[2017-09-28] MEDS: Gabapentin 300 MG CAPSULE PO SCH (08:36)
[2017-09-28] MEDS: Insulin NPH/REG 70/30 100 UNIT/ML (x5UNIT) SQ SCH (08:37)
--- NOTE | 2017-09-28 12:10 | Event Note ---
Date of Encounter: 09/28/17 Time of Encounter: 12:10 Patient discharged to home with no acute issues. We will continue patient on current antibiotics for at least 7 days until seen in wound care. Wound care has been managing patient's antibiotics and patient will continue to follow up with them after discharge.
== END 2017-09-28 11:45 | disposition home health service (06) | DRG 945 ==
LOC: INPGRE 09-19 19:31
PROVIDERS: ADMIT Internal Medicine; ATTEND Internal Medicine

== ENCOUNTER 2019-12-15 12:31 | Inpatient (IN) ==
[2019-12-15] MEDS ORDERED: Dextrose 50 % in Water (Vial) 50 ML in D5% in 0.2% NACL 500 ML IVC SCH (13:00)
[2019-12-15 13:17] LABS: Basophils # 0.1 K/mcL (0.0-0.2); Basophils % 0.6 %; Eosinophils % 0.3 %; Hematocrit 44.8 % (37.5-50.1); Hemoglobin 14.4 g/dL (12.9-16.9); Immature Granulocytes % 0.3 % (0-4); Lymphocytes # 1.7 K/mcL (0.6-4.6); Lymphocytes % 14.4 %; Mean Corpuscular HGB Conc 32.1 g/dL (31.6-35.5); Mean Corpuscular Hemoglobin 27.8 pg (28.0-33.3); Mean Corpuscular Volume 86.5 fL (83.0-100.0); Mean Platelet Volume 9.5 fL (9.4-12.4); Monocytes # 0.5 K/mcL (0.0-1.3); Monocytes % 3.9 %; Neutrophils # 9.3 K/mcL (1.6-8.9); Platelet Count 324 K/mcL (140-400); Red Blood Count 5.18 M/mcL (4.19-5.50); Red Cell Distribution Width 13.4 % (11.5-14.5); Segmented Neutrophils % 80.5 %; White Blood Count 11.6 K/mcL (4.3-11.1)
[2019-12-15 13:22] LABS: Prothrombin Time 11.3 Seconds (9.4-12.1)
[2019-12-15 13:25] LABS: Activated Partial Thrombo Time 39.8 Seconds (26.0-36.0)
[2019-12-15] MEDS ORDERED: D5% in 0.45% NACL 1,000 ML IVC SCH ×4 (13:30→23:22)
[2019-12-15 13:35] LABS: Alanine Aminotransferase 13 Units/L (7-52); Alkaline Phosphatase 94 Units/L (34-104); Aspartate Amino Transferase 12 Units/L (13-39); BUN/Creatinine Ratio 15 (6-26); Bilirubin,Indirect 0.3 mg/dL (0.0-1.0); Bilirubin,Total 0.3 mg/dL (0.3-1.0); Blood Urea Nitrogen 17 mg/dL (8-23); Calcium 9.3 mg/dL (8.6-10.3); Carbon Dioxide 24 mEq/L (23-29); Chloride 109 mEq/L (98-107); Ethanol < 10 mg/dL (Less than 10); Glucose 138 mg/dL (70-105); Osmolality,Calculated 292 (280-300); Potassium 4.4 mEq/L (3.5-5.1); Sodium 139 mEq/L (136-145); Troponin I < 0.03 ng/mL (< 0.04); eGFR For African Americans > 60 (> 60); eGFR For Non-African Americans > 60 (> 60)
[2019-12-15] MEDS ORDERED: *HR* Dextrose 50 % in Water (Syg) 50 ML SYRINGE IVP ONE (14:26)
[2019-12-15] MEDS ORDERED: *HR* Dextrose 50 % in Water (Syg) 50 ML SYRINGE ONE ×2 (14:27→17:07)
[2019-12-15] MEDS ORDERED: *HR* Dextrose 50 % in Water (Syg) 50 ML SYRINGE IVP PRN (15:10)
[2019-12-15] MEDS ORDERED: D5% in Water 1,000 ML IVC PRN ×2 (15:10→17:07)
[2019-12-15] MEDS ORDERED: Dextrose Gel 15 GM/37.5 ML TUBE PO PRN ×4 (15:10→17:07)
[2019-12-15] MEDS ORDERED: hydrALAZINE 10 MG TABLET PO PRN ×2 (15:20→17:07)
[2019-12-15] MEDS ORDERED: *HR* Dextrose 50 % in Water (Vial) 50 ML VIAL IVP PRN (16:15)
[2019-12-15 16:24] LABS: Bilirubin,Urine Negative (Negative); Blood,Urine Moderate (Negative); Clarity,Urine Clear (Clear); Color,Urine Yellow (Yellow); Glucose,Urine (UA) Normal (Normal); Ketones,Urine Negative (Negative); Leukocyte Esterase,Urine Negative (Negative); Nitrite,Urine Negative (Negative); Protein,Urine >=300 mg/dL (Neg-Trace); Specific Gravity,Urine >= 1.030 (1.010-1.025); Urobilinogen,Urine Normal (Normal)
[2019-12-15 16:29] LABS: Bacteria,Urine Few per hpf (None-Few); RBC,Urine 0-3 per hpf (0-3); WBC,Urine 0-3 per hpf (0-3)
[2019-12-15] MEDS ORDERED: Insulin LISPRO 300 UNITS/3 ML VIAL SQ SCH ×2 (16:30→21:00)
[2019-12-15 16:34] LABS: Amphetamine Screen,Urine Negative ng/mL (Cutoff=1000); Barbiturate Screen,Urine Negative ng/mL (Cutoff=200); Benzodiazepines Screen,Urine Negative ng/mL (Cutoff=200); Cannabinoid Screen,Urine Negative ng/mL (Cutoff = 50); Cocaine Screen,Urine Negative ng/mL (Cutoff= 300); Opiate Screen,Urine Negative ng/mL (Cutoff=300); Phencyclidine Screen,Urine Negative ng/mL (Cutoff=25)
[2019-12-15] MEDS ORDERED: Acetaminophen 325 MG TABLET PO PRN ×2 (16:54→17:07)
[2019-12-15] MEDS ORDERED: NON-FORMULARY MEDICATION 1 EACH EACH (Pantoprazole Sodium [Protonix] 40 MG) PO SCH (17:00)
[2019-12-15] MEDS ORDERED: NON-FORMULARY MEDICATION 1 EACH EACH (Amlodipine Besylate 10 MG) PO SCH (17:00)
[2019-12-15] MEDS ORDERED: *HR* Dextrose 50 % in Water (Vial) 50 ML VIAL IVP ONE (17:09)
[2019-12-15] MEDS ORDERED: amLODIPine 5 MG TABLET PO SCH (17:19)
[2019-12-15] MEDS ORDERED: carvediloL 6.25 MG TABLET PO SCH ×2 (17:30→21:00)
[2019-12-15] MEDS ORDERED: Magnesium Oxide 400 MG TABLET PO SCH (18:00)
[2019-12-15] MEDS ORDERED: MAGNESIUM OXIDE 400 MG PO SCH (18:00)
[2019-12-15] MEDS: *HR* Dextrose 50 % in Water (Vial) 50 ML VIAL IVP PRN ×2 (21:14→23:20)
[2019-12-15] MEDS ORDERED: D10% in Water 500 ML IVC SCH ×2 (21:45→23:30)
[2019-12-15 23:39] LABS: BUN/Creatinine Ratio 13 (6-26); Blood Urea Nitrogen 15 mg/dL (8-23); Calcium 8.9 mg/dL (8.6-10.3); Carbon Dioxide 24 mEq/L (23-29); Chloride 110 mEq/L (98-107); Glucose 34 mg/dL (70-105); Osmolality,Calculated 283 (280-300); Potassium 3.9 mEq/L (3.5-5.1); Sodium 138 mEq/L (136-145); eGFR For African Americans > 60 (> 60); eGFR For Non-African Americans > 60 (> 60)
[2019-12-16 00:59] VITALS: BP 116/67
[2019-12-16] MEDS: *HR* Dextrose 50 % in Water (Vial) 50 ML VIAL IVP PRN ×2 (01:07→01:36)
[2019-12-16] MEDS ORDERED: D10% in Water 500 ML IVC SCH (03:38)
[2019-12-16] MEDS ORDERED: *HR* Enoxaparin 40 MG/0.4 ML SYRINGE SQ SCH ×2 (06:00)
[2019-12-16] MEDS ORDERED: NON-FORMULARY MEDICATION 1 EACH EACH (Amlodipine Besylate 10 MG) PO SCH (09:00)
[2019-12-16] MEDS ORDERED: Thiamine (B-1) 100 MG TABLET PO SCH ×2 (09:00)
[2019-12-16] MEDS ORDERED: Aspirin Enteric Coated 81 MG Tablet PO SCH ×2 (09:00)
[2019-12-16 13:12] LABS: Estimated Average Glucose 263 mg/dl
== END 2019-12-16 05:05 | disposition other institution (70) | DRG 637 ==
LOC: INPGRE 12:31 → EMEROOGRE 12:31 → INPGRE 15:28
PROVIDERS: ADMIT Family Medicine; ATTEND Family Medicine